=== PATIENT | male | born 1990 | race Caucasian/White ===

== ENCOUNTER → 2018-01-04 | Outpatient (CLI) | payer BC ==
[~2018-01-04] MED LIST: AMOXIL250 MG/5 M PO; DARVOCET N 1001 TAB PO; KEFLEX500 M1 PO; KEFLEX500 MG PO; MOTRIN600 MG PO; MOTRIN800 MG PO; NKHM; PERCOCET 325 MG1 TA7 PO; TYLENOL W/CODE480 ML PO; VICODIN 5/500 505 MG PO
[2018-01-05 14:05] LABS: ATYPICAL PANCA <1:20 titer (Neg:<1:20)
[2018-01-06 13:03] LABS: SACCHAROMYCES CEREVISIAE IGA <20.0 Units (0.0-24.9)
== END | disposition home or self-care (01) ==
LOC: LAB 10:09
PROVIDERS: Internal Medicine Gastroenterology
DX: R19.7 Diarrhea, unspecified (principal)

== ENCOUNTER 2018-04-12 11:28 | Inpatient (IN) | payer BC ==
[~2018-04-12] VITALS: Ht 180.3 cm; Wt 81.7 kg
--- NOTE | ~2018-04-12 | O ---
[place], [place] OPERATIVE NOTE NAME: DELMI TALLEY UNIT #: [id number] ROOM: 415 DOCTOR: LOLY VACAMILTON BIRTHDATE: [birth year] DOS: 04/14/2018 HISTORY OF PRESENT ILLNESS: The patient is a 27-year-old who has been having diarrhea and bloody BM. Abdominal cramp has been diagnosed in the past with ulcerative colitis. He has been on mesalamine; however, he continued with abdominal pain. He had to be admitted and CT scan was colitis involving distal transverse colon, left colon and rectosigmoid colon. His past symptomatology again and again has been exacerbated. PAST MEDICAL HISTORY: Protein calorie malnutrition. PAST SURGICAL HISTORY: Tonsillectomy. SOCIAL HISTORY: Past smoker, nonalcohol consumer. FAMILY HISTORY: Noncontributory. ALLERGIES: No known medication. REVIEW OF SYSTEMS: Unremarkable except the diarrhea and bloody BM. PHYSICAL EXAMINATION: Unremarkable except blood in stool, guaiac positivity and gross visualization. His labs and records have been reviewed. The latest laboratory blood cultures negative. Stool cultures negative. Basic metabolic electrolyte balance. Chemistry balanced. B12 and folate within normal limits. CBC the latest is H of H of 11 and 34, white blood cell 9. Labs and records reviewed. PROCEDURE: Today's procedure part of investigation is colonoscopy plus biopsy. PREMEDICATION: Propofol. SCOPE: Olympus forward-viewing colonoscope 10L video. REPORT: After putting the patient in left lateral position and application of lubricant to the scope, the scope was introduced. Thereafter under direct visualization, advanced through the length of colon without difficulty. Intense colitis involving rectal pouch throughout the length of the colon, but the most intense segment is left and descending and some of the transverse colon; however, residual pathology continues to the right colon. Multiple biopsies and photographic series obtained. The patient extubated and tolerated the procedure well. IMPRESSION: Intense dial ulcerative colitis with intensity most on the transverse and descending colon. PLAN AND DISCUSSION: During the colonoscopy, I noticed 2 tablets of undigested mesalamine tablets suspected in the colon and therefore, he may not be receiving all the mesalamine that is needed. At this stage, we are going to discontinue Zosyn. We are going to put him on Flagyl 500 mg q.8h. We are going to continue [place], [place] OPERATIVE NOTE NAME: DELMI TALLEY UNIT #: [id number] ROOM: 415 DOCTOR: LOLY VACA,MILTON BIRTHDATE: [birth year] with mesalamine 800 mg 2 tablets t.i.d. to boost slight healing on here. We are going to start him on a trial of steroid, although is not going to be significantly help in this scenario of ulcerative colitis, but symptomatology is going to be perhaps ameliorated. On the other hand, we have to talk to the patient and the insurance company to see if they would allow us to start this gentleman in Humira or Stelara or other alternatives that they may qualify him for as far as his insurance is concerned. Of interest is that his mother also had history of ulcerative colitis and at the present time, I am going to keep him on clear liquid and aligned his bowel to rejuvenate hopefully on the steroids and mesalamine therapy along with the Flagyl management. MILTON SALCIDO MD CM:OPRECORD:OPERATIVE NOTE [id number] MILTON SALCIDO MD 05/07/18 30 interface
[2018-04-12 11:31] VITALS: BP 137/70
[2018-04-12 12:56] LABS: HEMATOCRIT 36.4 % (42.0-52.0); HEMOGLOBIN 11.9 g/dl (14.0-18.0); MEAN CELL VOLUME 86.1 fl (80.0-94.0); MEAN CORPUSCULAR HGB 28.1 pg (27.0-31.0); MEAN CORPUSCULAR HGB CONC 32.7 g/dl (33.0-37.0); MEAN PLATELET VOLUME 10.3 fl (9.6-12.3); PLATELET COUNT AUTOMATED 230 10*3/uL (130-400); RED BLOOD COUNT 4.23 10*6/uL (4.50-5.90); RED CELL DISTRI WIDTH 13.7 % (0-14.5); WHITE BLOOD COUNT 12.2 10*3/uL (4.8-10.8)
[2018-04-12 13:10] LABS: ALBUMIN 3.2 gm/dl (3.1-4.5); ALKALINE PHOSPHATASE 67 U/L (45-117); BUN 10 mg/dl (7-24); CHLORIDE 103 mmol/L (98-107); CREATININE 1.29 mg/dL (0.70-1.30); LIPASE 66 U/L (73-393); POTASSIUM 3.2 mmol/L (3.5-5.1); SGOT/AST 8 IU/L (3-35); SGPT/ALT 18 U/L (12-78); SODIUM 138 mmol/L (136-145)
[2018-04-12 13:18] LABS: TOTAL CELLS COUNTED 100 #CELLS
[2018-04-12 13:19] LABS: DOHLE BODIES FEW; PLATELET SUFFICIENCY NORMAL (NORMAL); TOXIC GRANULATION SLIGHT
[2018-04-12 15:20] VITALS: BP 131/55
[2018-04-12 16:00] VITALS: BP 131/58
[2018-04-12 20:00] VITALS: BP 135/64
[2018-04-13] VITALS: BP 117/60
[2018-04-13 05:54] LABS: HEMATOCRIT 34.9 % (42.0-52.0); HEMOGLOBIN 11.3 g/dl (14.0-18.0); MEAN CELL VOLUME 85.3 fl (80.0-94.0); MEAN CORPUSCULAR HGB 27.6 pg (27.0-31.0); MEAN CORPUSCULAR HGB CONC 32.4 g/dl (33.0-37.0); MEAN PLATELET VOLUME 10.7 fl (9.6-12.3); PLATELET COUNT AUTOMATED 237 10*3/uL (130-400); RED BLOOD COUNT 4.09 10*6/uL (4.50-5.90); RED CELL DISTRI WIDTH 13.4 % (0-14.5); WHITE BLOOD COUNT 9.8 10*3/uL (4.8-10.8)
[2018-04-13 06:15] LABS: ALBUMIN 2.7 gm/dl (3.1-4.5); BUN 16 mg/dl (7-24); CHLORIDE 107 mmol/L (98-107); CHOLESTEROL 79 mg/dL (<200); CREATININE 0.93 mg/dL (0.70-1.30); POTASSIUM 3.9 mmol/L (3.5-5.1); SGOT/AST 10 IU/L (3-35); SGPT/ALT 15 U/L (12-78); SODIUM 139 mmol/L (136-145); TOTAL PROTEIN 6.4 gm/dL (6.4-8.2); TRIGLYCERIDES 46 mg/dl (<150); VLDL CHOLESTEROL 9 mg/dL (6-40)
[2018-04-13 06:22] LABS: ACT PARTIAL THROMBO TIME 25.2 SECONDS (20.8-31.5)
[2018-04-13 06:25] LABS: ALKALINE PHOSPHATASE 53 U/L (45-117); HDL CHOLESTEROL 33 mg/dl (40-60); LDL CHOLESTEROL 37 mg/dL (9-159); THYROID STIM HORMONE (HS) 0.275 uIU/ml (0.358-4.75)
[2018-04-13 06:49] LABS: PLATELET SUFFICIENCY NORMAL (NORMAL); TOTAL CELLS COUNTED 100 #CELLS
[2018-04-13 08:00] VITALS: BP 116/56
[2018-04-13 08:33] LABS: VITAMIN D, 25-HYDROXY 34.8 ng/mL (30-100)
[2018-04-13 12:00] VITALS: BP 136/61
[2018-04-13 16:00] VITALS: BP 126/61
[2018-04-13 20:00] VITALS: BP 123/66
[2018-04-14] VITALS (9 sets, daily range): BP systolic 108–128; BP diastolic 51–79
[2018-04-14 06:13] LABS: HEMATOCRIT 36.2 % (42.0-52.0); HEMOGLOBIN 11.5 g/dl (14.0-18.0); MEAN CELL VOLUME 86.6 fl (80.0-94.0); MEAN CORPUSCULAR HGB 27.5 pg (27.0-31.0); MEAN CORPUSCULAR HGB CONC 31.8 g/dl (33.0-37.0); MEAN PLATELET VOLUME 10.6 fl (9.6-12.3); RED BLOOD COUNT 4.18 10*6/uL (4.50-5.90); RED CELL DISTRI WIDTH 13.7 % (0-14.5); WHITE BLOOD COUNT 13.1 10*3/uL (4.8-10.8)
[2018-04-14 06:20] LABS: PLATELET COUNT AUTOMATED 313 10*3/uL (130-400)
[2018-04-14 06:44] LABS: PLATELET SUFFICIENCY NORMAL (NORMAL); TOTAL CELLS COUNTED 100 #CELLS
[2018-04-14 06:53] LABS: BUN 19 mg/dl (7-24); CHLORIDE 107 mmol/L (98-107); CREATININE 0.99 mg/dL (0.70-1.30); SODIUM 140 mmol/L (136-145)
[2018-04-15] VITALS: BP 124/65
[2018-04-15 06:26] LABS: HEMOGLOBIN 9.5 g/dl (14.0-18.0); MEAN CELL VOLUME 86.9 fl (80.0-94.0); MEAN CORPUSCULAR HGB 27.6 pg (27.0-31.0); MEAN CORPUSCULAR HGB CONC 31.8 g/dl (33.0-37.0); MEAN PLATELET VOLUME 10.6 fl (9.6-12.3); PLATELET COUNT AUTOMATED 251 10*3/uL (130-400); RED BLOOD COUNT 3.44 10*6/uL (4.50-5.90); RED CELL DISTRI WIDTH 13.9 % (0-14.5); WHITE BLOOD COUNT 7.9 10*3/uL (4.8-10.8)
[2018-04-15 06:27] LABS: HEMATOCRIT 29.9 % (42.0-52.0)
[2018-04-15 06:37] LABS: BUN 19 mg/dl (7-24); CHLORIDE 111 mmol/L (98-107); CREATININE 0.97 mg/dL (0.70-1.30); POTASSIUM 3.8 mmol/L (3.5-5.1); SODIUM 144 mmol/L (136-145)
[2018-04-15 06:57] LABS: PLATELET SUFFICIENCY NORMAL (NORMAL); TOTAL CELLS COUNTED 100 #CELLS; TOXIC GRANULATION MODERATE
[2018-04-15 08:00] VITALS: BP 88/68
[2018-04-15 12:00] VITALS: BP 120/62
[2018-04-15 16:00] VITALS: BP 119/54
[2018-04-15 20:11] VITALS: BP 137/79
[2018-04-16] VITALS: BP 119/68
[2018-04-16] MEDS ORDERED: OMEPRAZOLE40 MG PO (02:41)
[2018-04-16 06:51] LABS: BASO % 0.2 % (0.0-1.0); EOS # 0.1 10*3/uL (0.0-0.4); EOS % 0.6 % (1.0-4.0); HEMATOCRIT 33.1 % (42.0-52.0); HEMOGLOBIN 10.8 g/dl (14.0-18.0); LYMPH # 1.1 10*3/uL (1.3-4.4); LYMPH % 10.5 % (27.0-41.0); MEAN CELL VOLUME 84.9 fl (80.0-94.0); MEAN CORPUSCULAR HGB 27.7 pg (27.0-31.0); MEAN CORPUSCULAR HGB CONC 32.6 g/dl (33.0-37.0); MEAN PLATELET VOLUME 10.2 fl (9.6-12.3); MONO # 1.3 10*3/uL (0.1-1.0); MONO % 12.2 % (3.0-9.0); NEUT # 8.2 10*3/uL (2.3-7.9); NEUT % 75.4 % (47.0-73.0); NUCLEATED RED BLOOD CELL 0.2 % (0.0-0.0); PLATELET COUNT AUTOMATED 254 10*3/uL (130-400); RED CELL DISTRI WIDTH 13.4 % (0-14.5); WHITE BLOOD COUNT 10.9 10*3/uL (4.8-10.8)
[2018-04-16 07:13] LABS: BUN 12 mg/dl (7-24); CHLORIDE 105 mmol/L (98-107); CREATININE 0.82 mg/dL (0.70-1.30); POTASSIUM 3.2 mmol/L (3.5-5.1); SODIUM 139 mmol/L (136-145)
[2018-04-16 08:00] VITALS: BP 92/52
[2018-04-16 12:00] VITALS: BP 123/66
[2018-04-16 16:00] VITALS: BP 123/66
[2018-04-16 20:00] VITALS: BP 122/63
[2018-04-17] VITALS: BP 139/81
[2018-04-17 08:00] VITALS: BP 116/68
[2018-04-17 12:00] VITALS: BP 143/64
[2018-04-17] MEDS ORDERED: LACTINEX 0.2 MG1 TAB PO (15:53)
[2018-04-17] MEDS ORDERED: DICYCLOMINE HCL10 MG PO (15:53)
[2018-04-17] MEDS ORDERED: FLAGYL500 MG PO (15:53)
[2018-04-17] MEDS ORDERED: PREDNISONE10 MG PO (15:53)
[2018-04-17 16:00] VITALS: BP 134/59
== END 2018-04-17 17:20 | disposition home or self-care (01) | DRG 386 ==
LOC: ED 11:28 → 4E 14:16 → EDHOLD 14:16 → 4E 14:45
PROVIDERS: Emergency Medicine; Internal Medicine
PROC: 0DBM8ZX Excision of Descending Colon, Via Natural or Artificial Opening Endoscopic, Diagnostic (ICD-10-PCS; principal; 2018-04-14)
PROC: 0DB68ZX Excision of Stomach, Via Natural or Artificial Opening Endoscopic, Diagnostic (ICD-10-PCS; principal; 2018-04-14)
PROC: 0DBL8ZX Excision of Transverse Colon, Via Natural or Artificial Opening Endoscopic, Diagnostic (ICD-10-PCS; principal; 2018-04-14)
DX: K51.911 Ulcerative colitis, unspecified with rectal bleeding (principal); D62 Acute posthemorrhagic anemia; E44.1 Mild protein-calorie malnutrition; D72.829 Elevated white blood cell count, unspecified; E87.6 Hypokalemia; R73.9 Hyperglycemia, unspecified; E83.41 Hypermagnesemia; Z87.891 Personal history of nicotine dependence; Z79.899 Other long term (current) drug therapy; Z90.89 Acquired absence of other organs; Z82.49 Family history of ischemic heart disease and other diseases of the circulatory system; Z84.89 Family history of other specified conditions; Z68.25 Body mass index [BMI] 25.0-25.9, adult

== ENCOUNTER → 2018-05-04 | Outpatient (CLI) | payer BC ==
[~2018-05-04] MED LIST changes: +DICYCLOMINE HCL10 MG PO; +FLAGYL500 MG PO; +LACTINEX 0.2 MG1 TAB PO; +OMEPRAZOLE40 MG PO; +PREDNISONE10 MG PO
[2018-05-04 09:55] LABS: BASO # 0.1 10*3/uL (0.0-0.1); BASO % 0.9 % (0.0-1.0); EOS # 0.2 10*3/uL (0.0-0.4); LYMPH # 1.9 10*3/uL (1.3-4.4); LYMPH % 36.1 % (27.0-41.0); MEAN CELL VOLUME 88.5 fl (80.0-94.0); MEAN CORPUSCULAR HGB 28.7 pg (27.0-31.0); MEAN CORPUSCULAR HGB CONC 32.4 g/dl (33.0-37.0); MEAN PLATELET VOLUME 9.5 fl (9.6-12.3); MONO # 0.4 10*3/uL (0.1-1.0); MONO % 8.2 % (3.0-9.0); NEUT # 2.8 10*3/uL (2.3-7.9); NEUT % 51.4 % (47.0-73.0); PLATELET COUNT AUTOMATED 203 10*3/uL (130-400); RED BLOOD COUNT 4.18 10*6/uL (4.50-5.90); RED CELL DISTRI WIDTH 14.8 % (0-14.5); WHITE BLOOD COUNT 5.4 10*3/uL (4.8-10.8)
== END | disposition home or self-care (01) ==
LOC: LAB 09:32
PROVIDERS: Internal Medicine Gastroenterology
DX: K51.90 Ulcerative colitis, unspecified, without complications (principal)

== ENCOUNTER → 2018-05-13 | Outpatient (CLI) | payer BC | END | disposition home or self-care (01) | LOC: RESCLI 03:31 | DX: K51.00 Ulcerative (chronic) pancolitis without complications (principal); E66.3 Overweight; Z76.89 Persons encountering health services in other specified circumstances; Z79.899 Other long term (current) drug therapy ==

== ENCOUNTER → 2019-03-03 | Outpatient (CLI) | payer BC ==
[2019-03-04 07:06] LABS: HEPATITIS B SURFACE AG Negative (Negative); HEPATITIS C VIRUS ANTIBODY <0.1 s/co (0.0-0.9)
== END | disposition home or self-care (01) ==
LOC: RESCLI 01:05
PROVIDERS: Hospitalist
DX: K51.00 Ulcerative (chronic) pancolitis without complications (principal); E66.3 Overweight; Z79.899 Other long term (current) drug therapy; Z88.8 Allergy status to other drugs, medicaments and biological substances

== ENCOUNTER → 2019-03-08 | Outpatient (CLI) | payer BC ==
[~2019-03-08] MED LIST changes: +ANAPROX DS550 MG PO; +CYCLOBENZAPRINE10 MG PO
== END | disposition home or self-care (01) ==
LOC: RESCLI 02:14
DX: Z11.3 Encounter for screening for infections with a predominantly sexual mode of transmission (principal); K51.00 Ulcerative (chronic) pancolitis without complications; E66.3 Overweight; Z88.8 Allergy status to other drugs, medicaments and biological substances

== ENCOUNTER 2019-03-13 19:54 | Emergency (ER) | payer BC ==
[~2019-03-13] VITALS: Ht 182.8 cm; Wt 81.6 kg
[~2019-03-13 19:54] MED LIST changes: -ANAPROX DS550 MG PO; -CYCLOBENZAPRINE10 MG PO
[2019-03-13] MEDS ORDERED: CYCLOBENZAPRINE10 MG PO (20:26)
[2019-03-13] MEDS ORDERED: ANAPROX DS550 MG PO (20:26)
== END 2019-03-13 20:50 | disposition home or self-care (01) ==
LOC: ED 19:54
DX: S39.012A Strain of muscle, fascia and tendon of lower back, initial encounter (principal); Z79.899 Other long term (current) drug therapy; Z87.891 Personal history of nicotine dependence; X50.0XXA Overexertion from strenuous movement or load, initial encounter; Y93.H2 Activity, gardening and landscaping; Y92.89 Other specified places as the place of occurrence of the external cause; Y99.8 Other external cause status

== ENCOUNTER → 2019-03-23 | Outpatient (CLI) | payer BC ==
[~2019-03-23] MED LIST changes: +ANAPROX DS550 MG PO; +CYCLOBENZAPRINE10 MG PO
== END | disposition home or self-care (01) ==
LOC: RESCLI 11:20
DX: A74.9 Chlamydial infection, unspecified (principal); M62.830 Muscle spasm of back; K51.00 Ulcerative (chronic) pancolitis without complications

== ENCOUNTER → 2019-10-07 | Outpatient (CLI) | payer SELFPAY | END | disposition home or self-care (01) | LOC: RESCLI 10:30 | DX: K51.00 Ulcerative (chronic) pancolitis without complications (principal); Z90.89 Acquired absence of other organs ==

== ENCOUNTER 2020-05-10 14:42 | Emergency (ER) | payer SELFPAY ==
[2020-05-10 17:39] LABS: BASO % 0.2 % (0.0-1.0); EOS # 0.1 10*3/uL (0.0-0.4); EOS % 0.4 % (1.0-4.0); HEMATOCRIT 42.5 % (42.0-52.0); LYMPH % 7.8 % (27.0-41.0); MEAN CELL VOLUME 86.4 fl (80.0-94.0); MEAN CORPUSCULAR HGB CONC 32.5 g/dl (33.0-37.0); MEAN PLATELET VOLUME 9.2 fl (9.6-12.3); MONO # 0.8 10*3/uL (0.1-1.0); MONO % 6.3 % (3.0-9.0); NEUT # 10.8 10*3/uL (2.3-7.9); NEUT % 84.6 % (47.0-73.0); PLATELET COUNT AUTOMATED 335 10*3/uL (130-400); RED BLOOD COUNT 4.92 10*6/uL (4.50-5.90); RED CELL DISTRI WIDTH 12.5 % (0-14.5); WHITE BLOOD COUNT 12.8 10*3/uL (4.8-10.8)
[2020-05-10 18:01] LABS: ALBUMIN 2.7 gm/dl (3.1-4.5); ALKALINE PHOSPHATASE 63 U/L (45-117); BUN 8 mg/dl (7-24); CHLORIDE 105 mmol/L (98-107); CREATININE 1.16 mg/dL (0.70-1.30); LIPASE 135 U/L (73-393); SGOT/AST 20 IU/L (3-35); SGPT/ALT 40 U/L (12-78); SODIUM 137 mmol/L (136-145); TOTAL PROTEIN 7.6 gm/dL (6.4-8.2)
[2020-05-10 18:05] LABS: POTASSIUM 3.9 mmol/L (3.5-5.1)
[2020-05-10 18:18] LABS: BILIRUBIN Negative (Negative); BLOOD Negative (Negative); CLARITY Cloudy (Clear); COLOR Dark Yellow (Yellow); GLUCOSE Negative (Negative); KETONE Trace (Negative); LEUKO ESTERASE Trace (Negative); NITRITE Negative (Negative); SPECIFIC GRAVITY >= 1.030 (1.001-1.030)
[2020-05-10 18:26] LABS: URINE AMPHETAMINES < 1000 (1000ng/ml); URINE BARBITURATES < 200 (200ng/ml); URINE BENZODIAZEPINES < 200 (200ng/ml); URINE CANNABINOIDS (THC) < 50 (50ng/ml); URINE COCAINE < 300 (300ng/ml); URINE METHADONE < 300 (300ng/ml); URINE OPIATES > 300 (300ng/ml)
[2020-05-10 18:28] LABS: URINE PHENCYCLIDINE < 25 (25ng/ml)
[2020-05-10 18:37] LABS: BACTERIA 1+; CALCIUM OXALATE CRYSTALS 0-2; MUCOUS 2+
[2020-05-10] MEDS ORDERED: ZOFRAN4 MG PO (18:37)
== END 2020-05-10 18:58 | disposition home or self-care (01) ==
LOC: ED 14:42
PROVIDERS: Emergency Medicine
DX: K52.9 Noninfective gastroenteritis and colitis, unspecified (principal); Z79.899 Other long term (current) drug therapy

== ENCOUNTER → 2020-05-24 | Outpatient (CLI) | payer MEDICAID ==
[~2020-05-24] MED LIST changes: +ZOFRAN4 MG PO
== END | disposition home or self-care (01) ==
LOC: RESCLI 11:16
PROVIDERS: ATTEND Internal Medicine Nephrology
DX: K51.00 Ulcerative (chronic) pancolitis without complications (principal); K21.9 Gastro-esophageal reflux disease without esophagitis; K90.9 Intestinal malabsorption, unspecified

== ENCOUNTER → 2020-06-07 | Outpatient (CLI) | payer OTHER | END | disposition home or self-care (01) | LOC: RESCLI 11:24 | PROVIDERS: ATTEND Internal Medicine Nephrology | DX: K51.00 Ulcerative (chronic) pancolitis without complications (principal); K21.9 Gastro-esophageal reflux disease without esophagitis; K90.9 Intestinal malabsorption, unspecified ==

== ENCOUNTER → 2021-10-22 | Outpatient (CLI) | payer OTHER | END | disposition home or self-care (01) | LOC: RESCLI 09:39 | PROVIDERS: ATTEND Emergency Medicine | DX: K51.00 Ulcerative (chronic) pancolitis without complications (principal); Z79.899 Other long term (current) drug therapy ==

== ENCOUNTER 2021-12-30 19:08 | Emergency (ER) | payer OTHER ==
[~2021-12-30] VITALS: Ht 182.8 cm; Wt 83.9 kg
[2021-12-30] MEDS ORDERED: HUMIRA40 MG/0.3 SQ (19:16)
[2021-12-30] MEDS ORDERED: AUGMENTIN 875-875 MG PO (19:51)
== END 2021-12-30 19:59 | disposition home or self-care (01) ==
LOC: ED 19:08
DX: S91.112A Laceration without foreign body of left great toe without damage to nail, initial encounter (principal); Z87.891 Personal history of nicotine dependence; Z79.899 Other long term (current) drug therapy; W22.8XXA Striking against or struck by other objects, initial encounter; Y93.01 Activity, walking, marching and hiking; Y92.89 Other specified places as the place of occurrence of the external cause; Y99.9 Unspecified external cause status

== ENCOUNTER → 2022-01-20 | Outpatient (CLI) | payer OTHER ==
[~2022-01-20] MED LIST changes: +AUGMENTIN 875-875 MG PO; +HUMIRA40 MG/0.3 SQ
[2022-01-20 09:35] LABS: BASO % 0.5 % (0.0-1.0); EOS # 0.2 10*3/uL (0.0-0.4); EOS % 3.1 % (1.0-4.0); HEMATOCRIT 41.9 % (42.0-52.0); LYMPH # 3.4 10*3/uL (1.3-4.4); LYMPH % 43.6 % (27.0-41.0); MEAN CELL VOLUME 89.1 fl (80.0-94.0); MEAN CORPUSCULAR HGB 30.6 pg (27.0-31.0); MEAN CORPUSCULAR HGB CONC 34.4 g/dl (33.0-37.0); MEAN PLATELET VOLUME 10.6 fl (9.6-12.3); MONO # 0.7 10*3/uL (0.1-1.0); MONO % 8.9 % (3.0-9.0); NEUT # 3.4 10*3/uL (2.3-7.9); NEUT % 43.8 % (47.0-73.0); PLATELET COUNT AUTOMATED 188 10*3/uL (130-400); RED CELL DISTRI WIDTH 12.1 % (0-14.5); WHITE BLOOD COUNT 7.7 10*3/uL (4.8-10.8)
[2022-01-20 09:55] LABS: BUN 15 mg/dl (7-24); CHLORIDE 110 mmol/L (98-107); POTASSIUM 3.8 mmol/L (3.5-5.1); SODIUM 142 mmol/L (136-145)
[2022-01-20 10:05] LABS: CPK 596 U/L (39-308); CREATININE 1.34 mg/dL (0.70-1.30)
== END | disposition home or self-care (01) ==
LOC: RESCLI 04:55
PROVIDERS: Internal Medicine; ATTEND Student in an Organized Health Care Education/Training Program
DX: F41.1 Generalized anxiety disorder (principal); R79.89 Other specified abnormal findings of blood chemistry; R74.8 Abnormal levels of other serum enzymes; R73.9 Hyperglycemia, unspecified; K51.00 Ulcerative (chronic) pancolitis without complications; K21.9 Gastro-esophageal reflux disease without esophagitis; Z79.899 Other long term (current) drug therapy

== ENCOUNTER → 2022-03-04 | Outpatient (CLI) | payer OTHER ==
[2022-03-04 10:20] LABS: HEMATOCRIT 42.4 % (42.0-52.0); MANUAL DIFF REFLEX YES; MEAN CELL VOLUME 90.2 fl (80.0-94.0); MEAN CORPUSCULAR HGB 30.4 pg (27.0-31.0); MEAN CORPUSCULAR HGB CONC 33.7 g/dl (33.0-37.0); MEAN PLATELET VOLUME 9.6 fl (9.6-12.3); PLATELET COUNT AUTOMATED 182 10*3/uL (130-400); RED CELL DISTRI WIDTH 12.3 % (0-14.5); WHITE BLOOD COUNT 6.6 10*3/uL (4.8-10.8)
[2022-03-04 10:38] LABS: ALKALINE PHOSPHATASE 79 U/L (45-117); BUN 13 mg/dl (7-24); CHLORIDE 112 mmol/L (98-107); CREATININE 1.13 mg/dL (0.70-1.30); POTASSIUM 4.4 mmol/L (3.5-5.1); SGOT/AST 16 IU/L (3-35); SGPT/ALT 20 U/L (12-78); SODIUM 140 mmol/L (136-145); TOTAL PROTEIN 7.8 gm/dL (6.4-8.2)
[2022-03-04 10:42] LABS: ATYPICAL LYMPHS 6 % (0-0); BURR CELLS FEW; PLATELET SUFFICIENCY NORMAL (NORMAL); TOTAL CELLS COUNTED 100 #CELLS
== END | disposition home or self-care (01) ==
LOC: RESCLI 09:07
PROVIDERS: Student in an Organized Health Care Education/Training Program; ATTEND Internal Medicine
DX: K51.911 Ulcerative colitis, unspecified with rectal bleeding (principal); K51.00 Ulcerative (chronic) pancolitis without complications; K21.9 Gastro-esophageal reflux disease without esophagitis; F41.1 Generalized anxiety disorder; K90.9 Intestinal malabsorption, unspecified; Z79.899 Other long term (current) drug therapy

== ENCOUNTER 2022-03-10 09:29 | Emergency (ER) | payer BC, OTHER ==
[~2022-03-10] VITALS: Ht 182.8 cm; Wt 83.9 kg
[2022-03-10 10:51] LABS: BASO # 0.1 10*3/uL (0.0-0.1); BASO % 0.6 % (0.0-1.0); EOS # 0.1 10*3/uL (0.0-0.4); EOS % 0.8 % (1.0-4.0); HEMATOCRIT 37.5 % (42.0-52.0); LYMPH # 2.2 10*3/uL (1.3-4.4); LYMPH % 26.1 % (27.0-41.0); MEAN CELL VOLUME 86.6 fl (80.0-94.0); MEAN CORPUSCULAR HGB CONC 34.7 g/dl (33.0-37.0); MEAN PLATELET VOLUME 9.6 fl (9.6-12.3); MONO # 1.1 10*3/uL (0.1-1.0); MONO % 12.8 % (3.0-9.0); NEUT # 5.1 10*3/uL (2.3-7.9); NEUT % 59.6 % (47.0-73.0); PLATELET COUNT AUTOMATED 200 10*3/uL (130-400); RED BLOOD COUNT 4.33 10*6/uL (4.50-5.90); RED CELL DISTRI WIDTH 11.9 % (0-14.5); WHITE BLOOD COUNT 8.6 10*3/uL (4.8-10.8)
[2022-03-10 10:54] LABS: BILIRUBIN Negative (Negative); BLOOD Negative (Negative); CLARITY Clear (Clear); COLOR Yellow (Yellow); GLUCOSE Negative (Negative); KETONE Negative (Negative); LEUKO ESTERASE Negative (Negative); NITRITE Negative (Negative); SPECIFIC GRAVITY 1.015 (1.001-1.030); UROBILINOGEN 0.2 E.U./dl (0.0-1.0)
[2022-03-10 11:12] LABS: BACTERIA TRACE; EPITHELIAL CELLS 0-2; MUCOUS 1+
[2022-03-10 11:14] LABS: ALKALINE PHOSPHATASE 69 U/L (45-117); BUN 12 mg/dl (7-24); CHLORIDE 105 mmol/L (98-107); CPK 169 U/L (39-308); CREATININE 1.39 mg/dL (0.70-1.30); POTASSIUM 4.2 mmol/L (3.5-5.1); SGOT/AST 21 IU/L (3-35); SGPT/ALT 19 U/L (12-78); SODIUM 136 mmol/L (136-145); TOTAL PROTEIN 7.9 gm/dL (6.4-8.2)
== END 2022-03-10 11:29 | disposition home or self-care (01) ==
LOC: ED 09:29
PROVIDERS: Emergency Medicine
DX: R50.9 Fever, unspecified (principal); Z20.822 Contact with and (suspected) exposure to COVID-19; Z87.891 Personal history of nicotine dependence; Z79.899 Other long term (current) drug therapy

== ENCOUNTER 2022-03-13 02:31 | Emergency (ER) | payer BC, OTHER ==
[~2022-03-13 02:31] MED LIST changes: -CIPRO500 MG PO; -HYDROCODONE-AC1 EAC1 PO; -METRONIDAZOLE500 M1 PO; -PREDNISONE20 M1 PO
[2022-03-13 04:19] LABS: HEMATOCRIT 37.1 % (42.0-52.0); MEAN CELL VOLUME 87.5 fl (80.0-94.0); MEAN CORPUSCULAR HGB CONC 34.2 g/dl (33.0-37.0); MEAN PLATELET VOLUME 9.5 fl (9.6-12.3); PLATELET COUNT AUTOMATED 197 10*3/uL (130-400); RED BLOOD COUNT 4.24 10*6/uL (4.50-5.90); RED CELL DISTRI WIDTH 11.9 % (0-14.5); WHITE BLOOD COUNT 5.4 10*3/uL (4.8-10.8)
[2022-03-13 04:25] LABS: MANUAL DIFF REFLEX YES
[2022-03-13 04:39] LABS: ALKALINE PHOSPHATASE 71 U/L (45-117); BUN 12 mg/dl (7-24); CHLORIDE 107 mmol/L (98-107); CREATININE 1.27 mg/dL (0.70-1.30); LIPASE 194 U/L (73-393); POTASSIUM 4.3 mmol/L (3.5-5.1); SGOT/AST 21 IU/L (3-35); SGPT/ALT 21 U/L (12-78); SODIUM 138 mmol/L (136-145); TOTAL PROTEIN 7.9 gm/dL (6.4-8.2)
[2022-03-13 04:43] LABS: ATYPICAL LYMPHS 1 % (0-0); OVALOCYTES FEW; PLATELET SUFFICIENCY NORMAL (NORMAL); TOTAL CELLS COUNTED 100 #CELLS
[2022-03-13] MEDS ORDERED: PREDNISONE20 M1 PO (05:45)
[2022-03-13] MEDS ORDERED: METRONIDAZOLE500 M1 PO (05:45)
[2022-03-13] MEDS ORDERED: CIPRO500 MG PO (05:45)
[2022-03-13] MEDS ORDERED: HYDROCODONE-AC1 EAC1 PO (06:00)
== END 2022-03-13 06:07 | disposition home or self-care (01) ==
LOC: ED 02:31
PROVIDERS: Emergency Medicine
DX: K51.90 Ulcerative colitis, unspecified, without complications (principal); Z87.891 Personal history of nicotine dependence; Z90.89 Acquired absence of other organs

== ENCOUNTER → 2022-03-13 | Outpatient (CLI) | payer BC, OTHER ==
[~2022-03-13] MED LIST changes: +CIPRO500 MG PO; +HYDROCODONE-AC1 EAC1 PO; +METRONIDAZOLE500 M1 PO; +PREDNISONE20 M1 PO
== END | disposition home or self-care (01) ==
LOC: LAB 15:22
PROVIDERS: ATTEND Internal Medicine Gastroenterology
DX: K51.90 Ulcerative colitis, unspecified, without complications (principal); R19.7 Diarrhea, unspecified

== ENCOUNTER → 2023-05-21 | Outpatient (CLI) | payer BC ==
[~2023-05-21] MED LIST changes: +CIPRO500 MG PO; +HYDROCODONE-AC1 EAC1 PO; +METRONIDAZOLE500 M1 PO; +PREDNISONE20 M1 PO
== END | disposition home or self-care (01) ==
LOC: RESCLI 16:32
PROVIDERS: ATTEND Student in an Organized Health Care Education/Training Program
DX: F41.1 Generalized anxiety disorder (principal); K51.00 Ulcerative (chronic) pancolitis without complications; B86 Scabies; B35.9 Dermatophytosis, unspecified; B35.4 Tinea corporis; Z82.49 Family history of ischemic heart disease and other diseases of the circulatory system; Z98.890 Other specified postprocedural states; Z79.899 Other long term (current) drug therapy